=== PATIENT | male | born 1990 | race African-American/Black ===

== ENCOUNTER 2017-08-15 04:36 | Inpatient (IN) | payer SELFPAY ==
[~2017-08-15] VITALS: Ht 180.3 cm; Wt 72.6 kg
[2017-08-15] MEDS ORDERED: ONDANSETRON HCL 4MG/2ML VIAL IV STA (07:21)
[2017-08-15] MEDS ORDERED: FAMOTIDINE 20MG/2ML VIAL IV STA (07:21)
[2017-08-15] MEDS ORDERED: SODIUM CHLORIDE 0.9% 1,000 ML IV ONE (07:21)
[2017-08-15] MEDS ORDERED: KETOROLAC 30MG/ML VIAL IV ONE (07:30)
[2017-08-15 07:46] LABS: CHLORIDE 104 mEq/L (98-107)
[2017-08-15 07:51] LABS: ETHANOL BLOOD < 10 mg/dL
[2017-08-15 07:55] LABS: HEMATOCRIT. 27.7 % (42.0-52.0); HEMOGLOBIN. 8.4 g/dL (14.0-18.0); MEAN CORPUSCULAR HEMOGLOBIN 25.3 pg (28.0-32.0); PLATELET 266 x1000/uL (130-400); RED BLOOD CELL COUNT 3.34 mill/uL (4.7-6.1); RED CELL DISTRIBUTION WIDTH 21.7 % (11.6-14.6)
[2017-08-15 08:02] LABS: INR 1.1; PROTHROMBIN TIME 11.4 sec (9.4-11.6)
[2017-08-15] MEDS ORDERED: MORPHINE SULFATE 4 MG/ML CPJ (NOT FOR IM USE) IV ONE ×2 (08:30→10:00)
[2017-08-15 08:37] LABS: PLATELET ESTIMATE NORMAL
[2017-08-15] MEDS ORDERED: KCL 20MEQ/100ML PREMIX 100 ML IV ONE (08:45)
[2017-08-15] MEDS ORDERED: MAGNESIUM/ALUMINUM HYDROXIDE/SIMETHICONE 30ML UDC PO PRN (09:45)
[2017-08-15] MEDS ORDERED: DOCUSATE SODIUM 100MG CAPSULE PO PRN (09:45)
[2017-08-15] MEDS ORDERED: IPRATROPIUM/ALBUTEROL 0.5-3(2.5)MG/3ML NEB INH PRN (09:45)
[2017-08-15] MEDS ORDERED: DIPHENHYDRAMINE 50MG/ML VIAL IV PRN (09:45)
[2017-08-15] MEDS ORDERED: NA PHOS,M-B/NA PHOS,DI-BA ENEMA 118ML PR PRN (09:45)
[2017-08-15] MEDS ORDERED: ACETAMINOPHEN 325MG TABLET PO PRN (09:45)
[2017-08-15] MEDS ORDERED: GUAIFENESIN 200MG/10ML SUGAR FREE UDC PO PRN (09:45)
[2017-08-15] MEDS ORDERED: TRAMADOL 50MG TABLET PO PRN (09:45)
[2017-08-15 10:03] LABS: CLARITY URINE CLEAR (CLEAR); COLOR URINE DARK YELLOW (YELLOW); KETONES URINE 1+ (NEGATIVE); LEUKOCYTE ESTERASE URINE TRACE (NEGATIVE); NITRITE URINE NEGATIVE (NEGATIVE); OCCULT BLOOD URINE NEGATIVE (NEGATIVE); PH URINE 5.5 (4.5-8.0); PROTEIN URINE 2+ (NEGATIVE); SPECIFIC GRAVITY URINE 1.041 (1.005-1.030)
[2017-08-15 10:28] LABS: FOLIC ACID (FOLATE) SERUM >20 ng/mL ng/mL (>5.38)
[2017-08-15 11:33] VITALS: BP 152/96
[2017-08-15 11:41] LABS: VITAMIN B12 SERUM 422 pg/mL (211-911)
[2017-08-15] MEDS ORDERED: KCL 20MEQ/100ML PREMIX 100 ML IV SCH (12:00)
[2017-08-15 12:45] VITALS: BP 152/96
[2017-08-15] MEDS: METOPROLOL TARTRATE 25MG TABLET PO SCH ×2 (13:12→21:59)
[2017-08-15] MEDS: SODIUM CHLORIDE 0.9% 1,000 ML IV SCH (13:12)
[2017-08-15] MEDS: FAMOTIDINE 20MG TABLET PO SCH ×2 (13:14→21:58)
[2017-08-15] MEDS: ONDANSETRON HCL 4MG/2ML VIAL IV PRN ×2 (14:23→21:59)
[2017-08-15] MEDS: KETOROLAC 15MG/ML VIAL IV PRN ×2 (14:24→21:46)
[2017-08-15] MEDS: MORPHINE SULFATE 4 MG/ML CPJ (NOT FOR IM USE) IV PRN ×2 (15:57→20:17)
[2017-08-15 16:00] VITALS: BP 152/92
[2017-08-15] MEDS: LORAZEPAM 0.5MG TABLET PO PRN (17:15)
[2017-08-15 19:42] LABS: *AMPHETAMINES SCREEN URINE NEGATIVE (NEGATIVE); *BARBITURATES SCREEN URINE NEGATIVE (NEGATIVE); *BENZODIAZEPINES SCREEN URINE NEGATIVE (NEGATIVE); *COCAINE SCREEN URINE NEGATIVE (NEGATIVE); CANNABINOID URINE SCREEN PRESUMTIVE POSITIVE (NEGATIVE); METHADONE URINE SCREEN NEGATIVE (NEGATIVE); OPIATES URINE SCREEN PRESUMTIVE POSITIVE (NEGATIVE); PHENCYCLIDINE URINE SCREEN NEGATIVE (NEGATIVE)
[2017-08-15 20:35] VITALS: BP 156/108
[2017-08-15] MEDS ORDERED: ZOLPIDEM TARTRATE 5MG TABLET PO PRN (21:00)
[2017-08-15] MEDS ORDERED: FAMOTIDINE 20MG/2ML VIAL IV SCH (21:00)
[2017-08-16 00:11] VITALS: BP 148/106
[2017-08-16] MEDS: MORPHINE SULFATE 4 MG/ML CPJ (NOT FOR IM USE) IV PRN ×2 (00:39→06:03)
[2017-08-16] MEDS: CLONIDINE 0.1MG TABLET PO PRN ×2 (00:43→19:50)
[2017-08-16] MEDS: SODIUM CHLORIDE 0.9% 1,000 ML IV SCH ×4 (00:44→20:54)
[2017-08-16] MEDS: LORAZEPAM 0.5MG TABLET PO PRN ×3 (02:15→16:17)
[2017-08-16] MEDS: ONDANSETRON HCL 4MG/2ML VIAL IV PRN ×2 (02:15→16:16)
[2017-08-16] MEDS: KETOROLAC 15MG/ML VIAL IV PRN ×3 (03:58→21:02)
[2017-08-16 04:00] VITALS: BP 155/94
[2017-08-16 06:24] LABS: BASOPHILS % 0.2 % (0.0-2.0); HEMATOCRIT. 26.2 % (42.0-52.0); LYMPHOCYTES % 9.2 % (20.0-50.0); MEAN CORPUSCULAR HEMOGLOBIN 25.8 pg (28.0-32.0); MEAN CORPUSCULAR VOLUME 84.2 fL (80.0-94.0); NEUTROPHILS % 82.6 % (40.0-76.0); PLATELET 189 x1000/uL (130-400); RED BLOOD CELL COUNT 3.11 mill/uL (4.7-6.1)
[2017-08-16 07:24] LABS: CHLORIDE 104 mEq/L (98-107)
[2017-08-16 07:35] LABS: AMYLASE 147 IU/L (25-115)
[2017-08-16 08:00] VITALS: BP 136/98
[2017-08-16] MEDS: FAMOTIDINE 20MG TABLET PO SCH ×2 (08:05→21:01)
[2017-08-16] MEDS: METOPROLOL TARTRATE 25MG TABLET PO SCH ×2 (08:06→21:01)
[2017-08-16 12:00] VITALS: BP 147/99
[2017-08-16 16:00] VITALS: BP 141/91
[2017-08-16] MEDS: FERROUS SULFATE 300MG/5ML UDC PO SCH (17:50)
[2017-08-16] MEDS ORDERED: NICOTINE 14MG PATCH TD SCH (18:00)
[2017-08-16 20:00] VITALS: BP 141/102
[2017-08-16] MEDS: NICOTINE 14MG PATCH TD SCH (20:54)
[2017-08-17 00:41] VITALS: BP 125/76
[2017-08-17] MEDS: KETOROLAC 15MG/ML VIAL IV PRN (03:31)
[2017-08-17] MEDS: SODIUM CHLORIDE 0.9% 1,000 ML IV SCH (03:31)
[2017-08-17 04:00] VITALS: BP 126/78
[2017-08-17 08:00] VITALS: BP 140/89
[2017-08-17] MEDS: FAMOTIDINE 20MG TABLET PO SCH (08:43)
[2017-08-17] MEDS: METOPROLOL TARTRATE 25MG TABLET PO SCH (08:43)
[2017-08-17] MEDS: FERROUS SULFATE 300MG/5ML UDC PO SCH (08:45)
[2017-08-17] MEDS: NICOTINE 14MG PATCH TD SCH (08:45)
[2017-08-17 12:00] VITALS: BP 132/78
[2017-08-17 12:07] VITALS: BP 140/89
== END 2017-08-17 13:25 | disposition home or self-care (01) | DRG 282 ==
LOC: ER 04:36 → 6EST 09:00 → ENRESERV 09:49 → UNDOADMIN 11:21 → 6EST 11:21
PROVIDERS: ADMIT Internal Medicine; ATTEND Internal Medicine
DX: K85.20 Alcohol induced acute pancreatitis without necrosis or infection (principal); K80.50 Calculus of bile duct without cholangitis or cholecystitis without obstruction; E87.6 Hypokalemia; D64.9 Anemia, unspecified; D50.9 Iron deficiency anemia, unspecified; F10.10 Alcohol abuse, uncomplicated; F17.210 Nicotine dependence, cigarettes, uncomplicated; K29.70 Gastritis, unspecified, without bleeding; Y90.9 Presence of alcohol in blood, level not specified
CPT/HCPCS: 36415; 71045; 74181; 76700; 80053; 80061; 80305; 81003; 82150; 82607; 82746; 83540; 83550; 83690; 85025; 85610; 93005; 96361; 96374; 96375; 96376; 99285; C1893; G0482; J1885; J2270; J2405; J3480; J3490; J7030

== ENCOUNTER 2018-02-17 14:32 | Inpatient (IN) | payer MEDICAID ==
[~2018-02-17] VITALS: Ht 177.8 cm; Wt 67.6 kg
[2018-02-17] MEDS ORDERED: FAMOTIDINE 20MG/2ML VIAL IV STA (15:54)
[2018-02-17] MEDS ORDERED: ONDANSETRON HCL 4MG/2ML INJ IV STA (15:54)
[2018-02-17] MEDS ORDERED: SODIUM CHLORIDE 0.9% 1,000 ML IV ONE ×2 (15:54→17:55)
[2018-02-17] MEDS ORDERED: ACETAMINOPHEN WITH CODEINE 300/30MG TABLET PO STA (15:54)
[2018-02-17 16:28] LABS: CLARITY URINE CLEAR (CLEAR); COLOR URINE DARK YELLOW (YELLOW); KETONES URINE 1+ (NEGATIVE); LEUKOCYTE ESTERASE URINE NEGATIVE (NEGATIVE); NITRITE URINE NEGATIVE (NEGATIVE); OCCULT BLOOD URINE NEGATIVE (NEGATIVE); PH URINE 5.5 (4.5-8.0); PROTEIN URINE TRACE (NEGATIVE); SPECIFIC GRAVITY URINE 1.028 (1.005-1.030)
[2018-02-17 16:39] LABS: HEMATOCRIT. 24.1 % (42.0-52.0); HEMOGLOBIN. 7.4 g/dL (14.0-18.0); MEAN CORPUSCULAR HEMOGLOBIN 22.9 pg (28.0-32.0); MEAN CORPUSCULAR VOLUME 74.6 fL (80.0-94.0); MEAN PLATELET VOLUME 8.2 fl (7.4-10.4); PLATELET 254 x1000/uL (130-400); RED BLOOD CELL COUNT 3.23 mill/uL (4.7-6.1); RED CELL DISTRIBUTION WIDTH 22.2 % (11.6-14.6)
[2018-02-17 16:39] LABS: METHADONE URINE SCREEN NEGATIVE (NEGATIVE)
[2018-02-17 16:40] LABS: *AMPHETAMINES SCREEN URINE NEGATIVE (NEGATIVE); *BARBITURATES SCREEN URINE NEGATIVE (NEGATIVE); *BENZODIAZEPINES SCREEN URINE NEGATIVE (NEGATIVE); *COCAINE SCREEN URINE NEGATIVE (NEGATIVE); CANNABINOID URINE SCREEN PRESUMTIVE POSITIVE (NEGATIVE); OPIATES URINE SCREEN NEGATIVE (NEGATIVE); PHENCYCLIDINE URINE SCREEN NEGATIVE (NEGATIVE)
[2018-02-17 16:46] LABS: CHLORIDE 101 mEq/L (98-107)
[2018-02-17] MEDS ORDERED: MAGNESIUM/ALUMINUM HYDROXIDE/SIMETHICONE 30ML UDC PO PRN (18:30)
[2018-02-17] MEDS ORDERED: ACETAMINOPHEN 325MG TABLET PO PRN (18:30)
[2018-02-17] MEDS ORDERED: LEVOFLOXACIN 500MG PREMIX 100 ML IV SCH (18:30)
[2018-02-17] MEDS ORDERED: IPRATROPIUM/ALBUTEROL 0.5-3(2.5)MG/3ML NEB INH PRN (18:30)
[2018-02-17] MEDS ORDERED: DOCUSATE SODIUM 100MG CAPSULE PO PRN (18:30)
[2018-02-17] MEDS ORDERED: LORAZEPAM 2MG/ML CPJ IV PRN (18:30)
[2018-02-17] MEDS ORDERED: ONDANSETRON HCL 4MG/2ML INJ IV PRN (18:30)
[2018-02-17] MEDS ORDERED: DIPHENHYDRAMINE 50MG/ML VIAL IV PRN (18:30)
[2018-02-17] MEDS ORDERED: GUAIFENESIN 200MG/10ML SUGAR FREE UDC PO PRN (18:30)
[2018-02-17] MEDS ORDERED: CLONIDINE 0.1MG TABLET PO PRN (18:30)
[2018-02-17 19:20] LABS: PLATELET ESTIMATE NORMAL
[2018-02-17 20:00] VITALS: BP 142/90
[2018-02-17] MEDS ORDERED: HYDROCODONE/ACETAMINOPHEN 10/325MG TABLET PO PRN (20:00)
[2018-02-17] MEDS ORDERED: MORPHINE SULFATE 4 MG/ML CPJ (NOT FOR IM USE) IV PRN (20:00)
[2018-02-17 21:00] VITALS: BP 142/90
[2018-02-17] MEDS ORDERED: NA PHOS,M-B/NA PHOS,DI-BA ENEMA 118ML PR PRN (21:00)
[2018-02-17 21:32] LABS: CHLORIDE 105 mEq/L (98-107)
[2018-02-17] MEDS ORDERED: METRONIDAZOLE 500 MG PREMIX 100 ML IV SCH (22:00)
[2018-02-18] VITALS (9 sets, daily range): BP systolic 114–139; BP diastolic 77–90
[2018-02-18] MEDS ORDERED: DEXT 5%/0.45% NACL KCL 10MEQ/L 1,000 ML IV SCH
[2018-02-18] MEDS ORDERED: LEVOFLOXACIN 500MG PREMIX 100 ML IV SCH (01:00)
[2018-02-18] MEDS: METRONIDAZOLE 500 MG PREMIX 100 ML IV SCH ×2 (03:55→11:38)
[2018-02-18 06:58] LABS: BASOPHILS % 1.3 % (0.0-2.0); HEMATOCRIT. 22.6 % (42.0-52.0); LYMPHOCYTES % 19.5 % (20.0-50.0); MEAN CORPUSCULAR HEMOGLOBIN 23.2 pg (28.0-32.0); MEAN CORPUSCULAR VOLUME 75.3 fL (80.0-94.0); MEAN PLATELET VOLUME 8.2 fl (7.4-10.4); MONOCYTES % 12.2 % (2.0-8.0); PLATELET 228 x1000/uL (130-400); RED BLOOD CELL COUNT 3.01 mill/uL (4.7-6.1); RED CELL DISTRIBUTION WIDTH 22.2 % (11.6-14.6)
[2018-02-18 07:22] LABS: CHLORIDE 107 mEq/L (98-107)
[2018-02-18 07:36] LABS: HDL CHOLESTEROL 51 mg/dL (40-59); LDL CHOLESTEROL 100 mg/dL (5-100); T4 FREE 0.68 ng/dL (0.76-1.46)
[2018-02-18] MEDS ORDERED: ENOXAPARIN 40MG/0.4ML SYR SUBCUT SCH (09:00)
[2018-02-18 13:44] LABS: PLATELET ESTIMATE NORMAL
[2018-02-18 16:25] LABS: HEMATOCRIT 25.1 % (42.0-52.0); HEMOGLOBIN 7.8 g/dL (14.0-18.0)
== END 2018-02-18 16:58 | disposition left against medical advice (07) | DRG 282 ==
LOC: ER 16:47 → 6EST 18:18 → EDBEDREQTM 18:22 → EDBEDREQ 18:22 → ENRESERV 19:09
PROVIDERS: ADMIT Internal Medicine; ATTEND Internal Medicine
PROC: 30233N1 Transfusion of Nonautologous Red Blood Cells into Peripheral Vein, Percutaneous Approach (ICD-10-PCS; principal; 2018-02-18)
DX: K85.90 Acute pancreatitis without necrosis or infection, unspecified (principal); E46 Unspecified protein-calorie malnutrition; R18.8 Other ascites; R65.10 Systemic inflammatory response syndrome (SIRS) of non-infectious origin without acute organ dysfunction; K83.8 Other specified diseases of biliary tract; K76.0 Fatty (change of) liver, not elsewhere classified; Z53.21 Procedure and treatment not carried out due to patient leaving prior to being seen by health care provider; D64.9 Anemia, unspecified; E03.9 Hypothyroidism, unspecified; E86.0 Dehydration; I10 Essential (primary) hypertension; M54.30 Sciatica, unspecified side; Z68.21 Body mass index [BMI] 21.0-21.9, adult
CPT/HCPCS: 36415; 36430; 71045; 76705; 80048; 80053; 80061; 80305; 81003; 83690; 84439; 84443; 85014; 85018; 85025; 85610; 86850; 86900; 86920; 93005; 96374; 96375; 99285; J1650; J1956; J2405; J3490; J7030; J7040; P9016

== ENCOUNTER 2018-06-06 14:13 | Emergency (ER) | payer MEDICAID ==
[~2018-06-06] VITALS: Ht 177.8 cm; Wt 68.1 kg
[2018-06-06 15:20] VITALS: BP 136/94
== END 2018-06-06 21:00 | disposition left against medical advice (07) ==
LOC: ER 14:13
DX: Z53.21 Procedure and treatment not carried out due to patient leaving prior to being seen by health care provider (principal)

== ENCOUNTER 2018-07-25 04:06 | Emergency (ER) | payer MEDICAID ==
[~2018-07-25] VITALS: Ht 177.8 cm; Wt 69.0 kg
[2018-07-25 05:53] LABS: HEMATOCRIT. 30.4 % (42.0-52.0); HEMOGLOBIN. 9.3 g/dL (14.0-18.0); MEAN CORPUSCULAR HEMOGLOBIN 23.2 pg (28.0-32.0); MEAN CORPUSCULAR VOLUME 75.6 fL (80.0-94.0); MEAN PLATELET VOLUME 8.1 fl (7.4-10.4); PLATELET 259 x1000/uL (130-400); RED BLOOD CELL COUNT 4.02 mill/uL (4.7-6.1); RED CELL DISTRIBUTION WIDTH 22.1 % (11.6-14.6)
[2018-07-25 05:54] LABS: CHLORIDE 102 mEq/L (98-107)
[2018-07-25 05:55] LABS: CLARITY URINE CLEAR (CLEAR); COLOR URINE DARK YELLOW (YELLOW); KETONES URINE 1+ (NEGATIVE); LEUKOCYTE ESTERASE URINE NEGATIVE (NEGATIVE); NITRITE URINE NEGATIVE (NEGATIVE); OCCULT BLOOD URINE 1+ (NEGATIVE); PROTEIN URINE TRACE (NEGATIVE); SPECIFIC GRAVITY URINE 1.027 (1.005-1.030); UROBILINOGEN URINE 0.2 E.U./dL (0.2-1.0)
[2018-07-25] MEDS ORDERED: SODIUM CHLORIDE 0.9% 1,000 ML IV ONE (06:00)
[2018-07-25] MEDS ORDERED: ONDANSETRON HCL 4MG/2ML INJ IV ONE ×2 (06:00→08:45)
[2018-07-25 06:40] LABS: PLATELET ESTIMATE NORMAL
[2018-07-25] MEDS ORDERED: FAMOTIDINE 20MG/2ML VIAL IV ONE (06:45)
[2018-07-25] MEDS ORDERED: MORPHINE SULFATE 4 MG/ML CPJ (NOT FOR IM USE) IV ONE (06:45)
[2018-07-25 07:46] LABS: *AMPHETAMINES SCREEN URINE NEGATIVE (NEGATIVE); *BARBITURATES SCREEN URINE NEGATIVE (NEGATIVE); *BENZODIAZEPINES SCREEN URINE NEGATIVE (NEGATIVE)
[2018-07-25 07:47] LABS: *COCAINE SCREEN URINE NEGATIVE (NEGATIVE); CANNABINOID URINE SCREEN PRESUMTIVE POSITIVE (NEGATIVE); METHADONE URINE SCREEN NEGATIVE (NEGATIVE); OPIATES URINE SCREEN NEGATIVE (NEGATIVE); PHENCYCLIDINE URINE SCREEN NEGATIVE (NEGATIVE)
[2018-07-25] MEDS ORDERED: MORPHINE SULFATE 10 MG/ML CPJ IV ONE (08:45)
[2018-07-25 10:16] VITALS: BP 132/93
== END 2018-07-25 10:30 | disposition home or self-care (01) ==
LOC: ER 06:20
DX: K85.90 Acute pancreatitis without necrosis or infection, unspecified (principal); F12.10 Cannabis abuse, uncomplicated; R11.10 Vomiting, unspecified
CPT/HCPCS: 36415; 74176; 76705; 80053; 80305; 80320; 81003; 83690; 85025; 96361; 96374; 96375; 96376; 99284; J2270; J2405; J3490; J7030; Z7610; G0480

== ENCOUNTER 2019-04-23 23:14 | Inpatient (IN) | payer MEDICAID ==
[~2019-04-23] VITALS: Ht 177.8 cm; Wt 52.6 kg
[2019-04-24] MEDS ORDERED: ONDANSETRON HCL 4MG/2ML INJ IV STA (00:15)
[2019-04-24] MEDS ORDERED: SODIUM CHLORIDE 0.9% 1,000 ML IV ONE ×2 (00:15)
[2019-04-24] MEDS ORDERED: MORPHINE SULFATE 4 MG/ML CPJ (NOT FOR IM USE) IV STA ×2 (00:15→02:02)
[2019-04-24 00:59] LABS: CHLORIDE 101 mEq/L (98-107); HEMATOCRIT. 25.7 % (42.0-52.0); MEAN CORPUSCULAR HEMOGLOBIN 24.3 pg (28.0-32.0); MEAN CORPUSCULAR VOLUME 78.4 fL (80.0-94.0); PLATELET 505 x1000/uL (130-400); RED BLOOD CELL COUNT 3.28 mill/uL (4.7-6.1)
[2019-04-24 01:01] LABS: INR 1.2
[2019-04-24 01:03] LABS: ETHANOL BLOOD < 10 mg/dL
[2019-04-24 01:14] LABS: BETA HYDROXYBUTYRATE 1.1 mMol/L (0.0-0.3)
[2019-04-24 01:21] LABS: PLATELET ESTIMATE INCREASED
[2019-04-24 01:51] LABS: BG BASE EXCESS 0.5 mmol/L (-2.0-2.0); BG CARBOXYHEMOGLOBIN 3.7 % (0.5-1.5); BG FRACTION INSPIRED OXYGEN 21; BG HCO3 ACT 25.2 mmol/L (22.0-26.0); BG METHEMOGLOBIN 0.1 % (0.0-1.5); BG OXYGEN SATURATION 88.6 % (92.0-98.5); BG OXYHEMOGLOBIN 85.2 % (94.0-97.0); BG PCO2 40.9 mmHg (35.0-45.0); BG PH 7.408 (7.350-7.450); BG PO2 55.9 mmHg (75.0-100.0); BG SAMPLE SITE RIGHT RADIAL; BG TOTAL HEMOGLOBIN 8.2 g/dL (12.0-18.0); BG VENT MODE ROOM AIR
[2019-04-24] MEDS ORDERED: MIDAZOLAM HCL 2 MG/2 ML VIAL IV ONE (02:15)
[2019-04-24] MEDS ORDERED: ONDANSETRON HCL 4MG/2ML INJ IV PRN (03:00)
[2019-04-24] MEDS ORDERED: DEXTROSE 50% WATER 50ML SYRINGE IV PRN (03:00)
[2019-04-24] MEDS ORDERED: ACETAMINOPHEN 650MG SUPP PR PRN (03:00)
[2019-04-24 03:46] LABS: ETHANOL BLOOD < 10 mg/dL
[2019-04-24] MEDS ORDERED: IOHEXOL-300 100 ML BOTTLE ONE (04:16)
[2019-04-24] MEDS: MORPHINE SULFATE 2 MG/ML CPJ (NOT FOR IM USE) IV PRN ×5 (06:06→23:02)
[2019-04-24] MEDS: SODIUM CHL 0.9% + KCL 20MEQ/L 1,000 ML IV SCH ×3 (06:30→22:46)
[2019-04-24] MEDS: BLOOD SUGAR DIAGNOSTIC STRIP TEST SCH ×4 (08:00→21:00)
[2019-04-24 08:30] VITALS: BP 133/95
[2019-04-24] MEDS: INSULIN LISPRO 100 UNITS/ML SUBCUT SCH ×4 (09:50→20:40)
[2019-04-24] MEDS: FAMOTIDINE 20MG/2ML VIAL IV SCH ×2 (09:57→22:46)
[2019-04-24] MEDS: HEPARIN 5000 UNITS/ML VIAL SUBCUT SCH ×2 (09:57→20:39)
[2019-04-24 10:40] VITALS: BP 133/95
[2019-04-24 12:00] VITALS: BP 129/95
[2019-04-24 16:00] VITALS: BP 118/87
[2019-04-24] MEDS ORDERED: POTASSIUM CHLORIDE 20MEQ TABLET SR PO NR (16:00)
[2019-04-24] MEDS: DOCUSATE SODIUM 250MG CAPSULE PO SCH (16:30)
[2019-04-24] MEDS: FERROUS SULFATE 325MG TABLET PO SCH (17:20)
[2019-04-24] MEDS ORDERED: MAGNESIUM 2 G PREMIX 50 ML IV NR (18:00)
[2019-04-24 20:00] VITALS: BP 128/96
[2019-04-24 21:19] LABS: TOTAL IRON BINDING CAPACITY 271 ug/dL (250-450)
[2019-04-25] VITALS (7 sets, daily range): BP systolic 116–135; BP diastolic 83–97
[2019-04-25] MEDS: MORPHINE SULFATE 2 MG/ML CPJ (NOT FOR IM USE) IV PRN ×5 (00:40→12:44)
[2019-04-25] MEDS ORDERED: MORPHINE SULFATE 2 MG/ML CPJ (NOT FOR IM USE) IV NR (01:00)
[2019-04-25] MEDS ORDERED: ACETAMINOPHEN 325MG TABLET PO PRN (01:15)
[2019-04-25] MEDS: SODIUM CHL 0.9% + KCL 20MEQ/L 1,000 ML IV SCH ×2 (06:30→20:54)
[2019-04-25] MEDS: BLOOD SUGAR DIAGNOSTIC STRIP TEST SCH ×4 (06:33→21:10)
[2019-04-25 07:11] LABS: HEMATOCRIT. 25.9 % (42.0-52.0); MEAN CORPUSCULAR HEMOGLOBIN 24.6 pg (28.0-32.0); MEAN CORPUSCULAR VOLUME 79.9 fL (80.0-94.0); MEAN PLATELET VOLUME 8.4 fl (7.4-10.4); PLATELET 427 x1000/uL (130-400); RED BLOOD CELL COUNT 3.24 mill/uL (4.7-6.1); RED CELL DISTRIBUTION WIDTH 20.7 % (11.6-14.6)
[2019-04-25 07:34] LABS: CLARITY URINE CLEAR (CLEAR); COLOR URINE YELLOW (YELLOW); KETONES URINE 3+ (NEGATIVE); LEUKOCYTE ESTERASE URINE NEGATIVE (NEGATIVE); NITRITE URINE NEGATIVE (NEGATIVE); OCCULT BLOOD URINE 1+ (NEGATIVE); PH URINE 5.5 (4.5-8.0); PROTEIN URINE TRACE (NEGATIVE); SPECIFIC GRAVITY URINE 1.028 (1.005-1.030); UROBILINOGEN URINE 0.2 E.U./dL (0.2-1.0)
[2019-04-25 08:01] LABS: *AMPHETAMINES SCREEN URINE NEGATIVE (NEGATIVE); *BARBITURATES SCREEN URINE NEGATIVE (NEGATIVE); *COCAINE SCREEN URINE NEGATIVE (NEGATIVE)
[2019-04-25 08:02] LABS: *BENZODIAZEPINES SCREEN URINE PRESUMTIVE POSITIVE (NEGATIVE); CANNABINOID URINE SCREEN PRESUMTIVE POSITIVE (NEGATIVE); METHADONE URINE SCREEN NEGATIVE (NEGATIVE); OPIATES URINE SCREEN PRESUMTIVE POSITIVE (NEGATIVE); PHENCYCLIDINE URINE SCREEN NEGATIVE (NEGATIVE)
[2019-04-25 08:04] LABS: CHLORIDE 102 mEq/L (98-107)
[2019-04-25] MEDS: DOCUSATE SODIUM 250MG CAPSULE PO SCH (08:17)
[2019-04-25] MEDS: HEPARIN 5000 UNITS/ML VIAL SUBCUT SCH ×2 (08:22→20:54)
[2019-04-25] MEDS: FAMOTIDINE 20MG/2ML VIAL IV SCH ×2 (08:22→20:54)
[2019-04-25] MEDS: FERROUS SULFATE 325MG TABLET PO SCH ×3 (08:22→19:05)
[2019-04-25] MEDS: INSULIN LISPRO 100 UNITS/ML SUBCUT SCH ×4 (08:24→21:17)
[2019-04-25 10:02] LABS: PLATELET ESTIMATE INCREASED
[2019-04-26] VITALS: BP 142/98
[2019-04-26 01:03] VITALS: BP 142/101
[2019-04-26] MEDS: MORPHINE SULFATE 2 MG/ML CPJ (NOT FOR IM USE) IV PRN ×4 (01:20→11:04)
[2019-04-26 04:00] VITALS: BP 130/90
[2019-04-26] MEDS: BLOOD SUGAR DIAGNOSTIC STRIP TEST SCH (06:20)
[2019-04-26 06:25] LABS: HEMATOCRIT. 26.4 % (42.0-52.0); HEMOGLOBIN. 8.2 g/dL (14.0-18.0); MEAN CORPUSCULAR HEMOGLOBIN 24.4 pg (28.0-32.0); MEAN CORPUSCULAR VOLUME 78.7 fL (80.0-94.0); MEAN PLATELET VOLUME 8.4 fl (7.4-10.4); PLATELET 451 x1000/uL (130-400); RED BLOOD CELL COUNT 3.36 mill/uL (4.7-6.1); RED CELL DISTRIBUTION WIDTH 20.6 % (11.6-14.6)
[2019-04-26 06:59] LABS: CHLORIDE 99 mEq/L (98-107)
[2019-04-26 08:00] VITALS: BP 143/98
[2019-04-26] MEDS: DOCUSATE SODIUM 250MG CAPSULE PO SCH (08:11)
[2019-04-26] MEDS: FERROUS SULFATE 325MG TABLET PO SCH (08:12)
[2019-04-26] MEDS: FAMOTIDINE 20MG/2ML VIAL IV SCH (08:13)
[2019-04-26] MEDS: HEPARIN 5000 UNITS/ML VIAL SUBCUT SCH (08:13)
[2019-04-26] MEDS: INSULIN LISPRO 100 UNITS/ML SUBCUT SCH (08:55)
[2019-04-26 11:04] VITALS: BP 143/98
[2019-04-26] MEDS: SODIUM CHL 0.9% + KCL 20MEQ/L 1,000 ML IV SCH (11:04)
[2019-04-26 11:44] LABS: PLATELET ESTIMATE INCREASED
== END 2019-04-26 12:48 | disposition left against medical advice (07) | DRG 282 ==
LOC: ER 23:14 → 7WST 04-24 03:30 → EDBEDREQTM 04-24 03:39 → EDBEDREQ 04-24 03:39 → ENRESERV 04-24 07:10 → 7WST 04-24 09:07 → 6EST 04-25 12:12
PROVIDERS: ADMIT Family Medicine Adult Medicine; ATTEND Family Medicine Adult Medicine
DX: K85.20 Alcohol induced acute pancreatitis without necrosis or infection (principal); E83.42 Hypomagnesemia; D50.9 Iron deficiency anemia, unspecified; E11.9 Type 2 diabetes mellitus without complications; E87.1 Hypo-osmolality and hyponatremia; E87.6 Hypokalemia; F12.90 Cannabis use, unspecified, uncomplicated; G89.29 Other chronic pain; K86.0 Alcohol-induced chronic pancreatitis; K86.3 Pseudocyst of pancreas; Z53.29 Procedure and treatment not carried out because of patient's decision for other reasons; F10.10 Alcohol abuse, uncomplicated
CPT/HCPCS: 36415; 36600; 71045; 74177; 80048; 80305; 80320; 81003; 82010; 82375; 82728; 82805; 82962; 83036; 83540; 83550; 83605; 83735; 84478; 96361; 96374; 96375; 99285; C1893; J1644; J1815; J2250; J2270; J2405; J3475; J3480; J3490; J7030; Q9967; G0480

== ENCOUNTER 2019-05-06 10:39 | Inpatient (IN) | payer MEDICAID ==
[~2019-05-06] VITALS: Ht 177.8 cm; Wt 68.0 kg
[2019-05-06] MEDS ORDERED: MORPHINE SULFATE 4 MG/ML CPJ (NOT FOR IM USE) IV STA (11:05)
[2019-05-06] MEDS ORDERED: ONDANSETRON HCL 4MG/2ML INJ IV STA (11:05)
[2019-05-06] MEDS ORDERED: SODIUM CHLORIDE 0.9% 1,000 ML IV ONE (11:05)
[2019-05-06] MEDS ORDERED: INSULIN REGULAR (HUMULIN R) 300UNITS/3ML SUBCUT ONE (11:15)
[2019-05-06 11:30] LABS: HEMATOCRIT. 24.7 % (42.0-52.0); HEMOGLOBIN. 7.5 g/dL (14.0-18.0); MEAN CORPUSCULAR HEMOGLOBIN 23.9 pg (28.0-32.0); MEAN CORPUSCULAR VOLUME 79.1 fL (80.0-94.0); MEAN PLATELET VOLUME 7.3 fl (7.4-10.4); PLATELET 581 x1000/uL (130-400); RED BLOOD CELL COUNT 3.13 mill/uL (4.7-6.1); RED CELL DISTRIBUTION WIDTH 24.4 % (11.6-14.6)
[2019-05-06 11:39] LABS: CHLORIDE 101 mEq/L (98-107)
[2019-05-06 11:43] LABS: ETHANOL BLOOD < 10 mg/dL
[2019-05-06 11:47] LABS: BETA HYDROXYBUTYRATE 0.4 mMol/L (0.0-0.3)
[2019-05-06 12:30] LABS: CLARITY URINE CLEAR (CLEAR); COLOR URINE DARK YELLOW (YELLOW); KETONES URINE 1+ (NEGATIVE); LEUKOCYTE ESTERASE URINE NEGATIVE (NEGATIVE); NITRITE URINE NEGATIVE (NEGATIVE); OCCULT BLOOD URINE TRACE (NEGATIVE); PH URINE 5.5 (4.5-8.0); PROTEIN URINE 1+ (NEGATIVE); SPECIFIC GRAVITY URINE 1.046 (1.005-1.030)
[2019-05-06 12:59] LABS: *AMPHETAMINES SCREEN URINE NEGATIVE (NEGATIVE); *BARBITURATES SCREEN URINE NEGATIVE (NEGATIVE); CANNABINOID URINE SCREEN PRESUMTIVE POSITIVE (NEGATIVE)
[2019-05-06 13:06] LABS: METHADONE URINE SCREEN NEGATIVE (NEGATIVE); OPIATES URINE SCREEN PRESUMTIVE POSITIVE (NEGATIVE)
[2019-05-06 13:11] LABS: *BENZODIAZEPINES SCREEN URINE NEGATIVE (NEGATIVE)
[2019-05-06 13:12] LABS: *COCAINE SCREEN URINE NEGATIVE (NEGATIVE)
[2019-05-06 13:14] LABS: PHENCYCLIDINE URINE SCREEN NEGATIVE (NEGATIVE)
[2019-05-06] MEDS ORDERED: MORPHINE SULFATE 4 MG/ML CPJ (NOT FOR IM USE) IV ONE (14:00)
[2019-05-06 14:20] LABS: PLATELET ESTIMATE INCREASED
[2019-05-06] MEDS ORDERED: DIPHENHYDRAMINE 50MG/ML VIAL IV PRN (19:15)
[2019-05-06] MEDS ORDERED: GUAIFENESIN 200MG/10ML SUGAR FREE UDC PO PRN (19:15)
[2019-05-06] MEDS ORDERED: ACETAMINOPHEN 650MG SUPP PR PRN (19:15)
[2019-05-06] MEDS ORDERED: IPRATROPIUM/ALBUTEROL 0.5-3(2.5)MG/3ML NEB HHN PRN (19:15)
[2019-05-06] MEDS ORDERED: DOCUSATE SODIUM 100MG CAPSULE PO PRN (19:15)
[2019-05-06] MEDS ORDERED: HYDROCODONE/ACETAMINOPHEN 5/325MG TABLET PO PRN (19:15)
[2019-05-06] MEDS ORDERED: NA PHOS,M-B/NA PHOS,DI-BA ENEMA 118ML PR PRN (19:15)
[2019-05-06] MEDS ORDERED: HYDROCODONE/ACETAMINOPHEN 10/325MG TABLET PO PRN (19:15)
[2019-05-06] MEDS ORDERED: MORPHINE SULFATE 2 MG/ML CPJ (NOT FOR IM USE) IV PRN (19:15)
[2019-05-06] MEDS ORDERED: MAGNESIUM/ALUMINUM HYDROXIDE/SIMETHICONE 30ML UDC PO PRN (19:15)
[2019-05-06] MEDS ORDERED: CLONIDINE 0.1MG TABLET PO PRN (19:15)
[2019-05-06] MEDS ORDERED: ACETAMINOPHEN 650MG/20.3ML UDC GT PRN (19:15)
[2019-05-06] MEDS ORDERED: ONDANSETRON HCL 4MG/2ML INJ IV PRN (19:15)
[2019-05-06] MEDS ORDERED: ACETAMINOPHEN 325MG TABLET PO PRN (19:15)
[2019-05-06 20:00] VITALS: BP_SYST 128; BP_SYST 130; BP_DIAS 78; BP_DIAS 97
[2019-05-06 20:30] VITALS: BP 130/97
[2019-05-06] MEDS ORDERED: ENOXAPARIN 40MG/0.4ML SYR SUBCUT SCH (21:00)
[2019-05-06] MEDS ORDERED: FAMOTIDINE 20MG/2ML VIAL IV SCH (21:00)
[2019-05-06] MEDS ORDERED: DEXTROSE 50% WATER 50ML SYRINGE IV PRN (21:30)
[2019-05-06] MEDS: DEXT 5%/0.45% NACL 1000ML 1,000 ML IV SCH (21:56)
[2019-05-06] MEDS: SODIUM CHLORIDE 0.9% INJ 3ML FLUSH IVF SCH (21:59)
[2019-05-07] VITALS: BP_SYST 139; BP_SYST 167; BP_DIAS 70; BP_DIAS 96
[2019-05-07 04:00] VITALS: BP 124/94
[2019-05-07] MEDS: DEXT 5%/0.45% NACL 1000ML 1,000 ML IV SCH (05:49)
[2019-05-07] MEDS: SODIUM CHLORIDE 0.9% INJ 3ML FLUSH IVF SCH (05:57)
[2019-05-07 07:00] LABS: CHLORIDE 104 mEq/L (98-107)
[2019-05-07 07:06] LABS: LDL CHOLESTEROL 95 mg/dL (5-100)
[2019-05-07 07:07] LABS: HDL CHOLESTEROL 37 mg/dL (40-59)
[2019-05-07 07:16] LABS: HEMATOCRIT. 23.1 % (42.0-52.0); HEMOGLOBIN. 7.1 g/dL (14.0-18.0); MEAN CORPUSCULAR HEMOGLOBIN 24.2 pg (28.0-32.0); MEAN CORPUSCULAR VOLUME 79.2 fL (80.0-94.0); MEAN PLATELET VOLUME 7.7 fl (7.4-10.4); PLATELET 535 x1000/uL (130-400); RED BLOOD CELL COUNT 2.92 mill/uL (4.7-6.1); RED CELL DISTRIBUTION WIDTH 23.8 % (11.6-14.6)
[2019-05-07] MEDS ORDERED: BLOOD SUGAR DIAGNOSTIC STRIP TEST SCH (07:20)
[2019-05-07] MEDS ORDERED: INSULIN LISPRO 100 UNITS/ML SUBCUT SCH (07:50)
[2019-05-08 07:42] LABS: PLATELET ESTIMATE INCREASED
== END 2019-05-07 07:15 | disposition left against medical advice (07) | DRG 282 ==
LOC: ER 10:39 → 6EST 15:13 → ENRESERV 18:38
PROVIDERS: ADMIT Family Medicine; ATTEND Family Medicine
DX: K86.3 Pseudocyst of pancreas (principal); E44.0 Moderate protein-calorie malnutrition; K86.1 Other chronic pancreatitis; E11.9 Type 2 diabetes mellitus without complications; F10.10 Alcohol abuse, uncomplicated; K80.20 Calculus of gallbladder without cholecystitis without obstruction; E87.1 Hypo-osmolality and hyponatremia; Z68.21 Body mass index [BMI] 21.0-21.9, adult; Z79.4 Long term (current) use of insulin
CPT/HCPCS: 36415; 71045; 74176; 80053; 80061; 80305; 80320; 81003; 82010; 82962; 85025; 93005; 99285; J1650; J1815; J2270; J2405; J3490; J7030; G0480

== ENCOUNTER 2019-05-08 07:37 | Emergency (ER) | payer MEDICAID ==
[~2019-05-08] VITALS: Ht 177.8 cm; Wt 158.0 kg
[2019-05-08 11:39] VITALS: BP 127/96
== END 2019-05-08 20:56 | disposition left against medical advice (07) ==
LOC: ER 07:37
DX: R10.9 Unspecified abdominal pain (principal); Z53.21 Procedure and treatment not carried out due to patient leaving prior to being seen by health care provider

== ENCOUNTER 2019-10-11 23:09 | Inpatient (IN) | payer MEDICAID ==
[~2019-10-11] VITALS: Ht 172.7 cm; Wt 74.8 kg
[2019-10-11] MEDS ORDERED: MORPHINE SULFATE 4 MG/ML CPJ (NOT FOR IM USE) IV STA (23:48)
[2019-10-11] MEDS ORDERED: ONDANSETRON HCL 4MG/2ML INJ IV STA (23:48)
[2019-10-11] MEDS ORDERED: SODIUM CHLORIDE 0.9% 1,000 ML IV ONE (23:48)
[2019-10-12 00:36] LABS: BASOPHILS % 0.8 % (0.0-2.0); EOSINOPHILS % 0.3 % (0.0-5.0); HEMATOCRIT. 39.8 % (42.0-52.0); HEMOGLOBIN. 13.5 g/dL (14.0-18.0); LYMPHOCYTES % 13.9 % (20.0-50.0); MEAN CORPUSCULAR HEMOGLOBIN 29.7 pg (28.0-32.0); MEAN CORPUSCULAR VOLUME 87.6 fL (80.0-94.0); MEAN PLATELET VOLUME 8.7 fl (7.4-10.4); MONOCYTES % 8.1 % (2.0-8.0); NEUTROPHILS % 76.9 % (40.0-76.0); PLATELET 244 x1000/uL (130-400); RED BLOOD CELL COUNT 4.55 mill/uL (4.7-6.1); RED CELL DISTRIBUTION WIDTH 21.1 % (11.6-14.6)
[2019-10-12 00:37] LABS: CLARITY URINE CLEAR (CLEAR); COLOR URINE YELLOW (YELLOW); KETONES URINE 1+ (NEGATIVE); LEUKOCYTE ESTERASE URINE NEGATIVE (NEGATIVE); NITRITE URINE NEGATIVE (NEGATIVE); OCCULT BLOOD URINE 1+ (NEGATIVE); PROTEIN URINE TRACE (NEGATIVE); SPECIFIC GRAVITY URINE 1.023 (1.005-1.030)
[2019-10-12 00:38] LABS: CHLORIDE 102 mEq/L (98-107)
[2019-10-12 00:40] LABS: PROTHROMBIN TIME 10.6 sec (9.6-11.0)
[2019-10-12] MEDS ORDERED: MORPHINE SULFATE 4 MG/ML CPJ (NOT FOR IM USE) IV ONE ×2 (01:00→01:45)
[2019-10-12 04:00] VITALS: BP 144/93
[2019-10-12 04:10] VITALS: BP 129/95
[2019-10-12] MEDS ORDERED: CYAN50003 MT (04:24)
[2019-10-12] MEDS ORDERED: HYDR-3280 MT (04:24)
[2019-10-12] MEDS ORDERED: AMYL1CAP57 MT (04:24)
[2019-10-12] MEDS ORDERED: FERR236T3 MT (04:24)
[2019-10-12] MEDS ORDERED: MORPHINE SULFATE 2 MG/ML CPJ (NOT FOR IM USE) IV PRN (07:30)
[2019-10-12] MEDS ORDERED: DEXTROSE 50% WATER 50ML SYRINGE IV PRN (07:30)
[2019-10-12] MEDS: LIPASE/PROTEASE/AMYLASE 4,200/14,200/24,600 UNITS CAP DR PO SCH ×3 (07:50→17:58)
[2019-10-12] MEDS: INSULIN LISPRO 100 UNITS/ML SUBCUT SCH ×4 (09:16→21:34)
[2019-10-12] MEDS: SODIUM CHLORIDE 0.9% 1,000 ML IV SCH (11:09)
[2019-10-12] MEDS: MORPHINE SULFATE 2 MG/ML CPJ (NOT FOR IM USE) IV PRN ×4 (11:09→22:54)
[2019-10-12] MEDS: BLOOD SUGAR DIAGNOSTIC STRIP TEST SCH ×3 (12:20→21:33)
[2019-10-12 13:35] LABS: BASOPHILS % 0.1 % (0.0-2.0); EOSINOPHILS % 0.1 % (0.0-5.0); HEMATOCRIT. 41.8 % (42.0-52.0); HEMOGLOBIN. 13.9 g/dL (14.0-18.0); LYMPHOCYTES % 7.1 % (20.0-50.0); MEAN CORPUSCULAR HEMOGLOBIN 29.3 pg (28.0-32.0); MEAN CORPUSCULAR VOLUME 87.8 fL (80.0-94.0); MEAN PLATELET VOLUME 8.7 fl (7.4-10.4); MONOCYTES % 6.9 % (2.0-8.0); NEUTROPHILS % 85.8 % (40.0-76.0); PLATELET 222 x1000/uL (130-400); RED BLOOD CELL COUNT 4.76 mill/uL (4.7-6.1); RED CELL DISTRIBUTION WIDTH 20.4 % (11.6-14.6)
[2019-10-12 13:41] LABS: CHLORIDE 101 mEq/L (98-107)
[2019-10-12 13:49] LABS: LDL CHOLESTEROL 85 mg/dL (5-100)
[2019-10-12 13:50] LABS: HDL CHOLESTEROL 70 mg/dL (40-59)
[2019-10-12] MEDS: ONDANSETRON HCL 4MG/2ML INJ IV PRN ×2 (14:55→22:54)
[2019-10-12 18:34] LABS: *BARBITURATES SCREEN URINE NEGATIVE (NEGATIVE)
[2019-10-12 18:35] LABS: *AMPHETAMINES SCREEN URINE NEGATIVE (NEGATIVE); *BENZODIAZEPINES SCREEN URINE NEGATIVE (NEGATIVE); *COCAINE SCREEN URINE NEGATIVE (NEGATIVE); METHADONE URINE SCREEN NEGATIVE (NEGATIVE); OPIATES URINE SCREEN PRESUMTIVE POSITIVE (NEGATIVE)
[2019-10-12 18:36] LABS: CANNABINOID URINE SCREEN PRESUMTIVE POSITIVE (NEGATIVE); PHENCYCLIDINE URINE SCREEN NEGATIVE (NEGATIVE)
[2019-10-12 20:00] VITALS: BP 143/83
[2019-10-13] VITALS: BP 138/80
[2019-10-13] MEDS: MORPHINE SULFATE 2 MG/ML CPJ (NOT FOR IM USE) IV PRN ×6 (02:48→22:47)
[2019-10-13 04:00] VITALS: BP 128/62
[2019-10-13] MEDS: BLOOD SUGAR DIAGNOSTIC STRIP TEST SCH ×4 (06:24→21:40)
[2019-10-13 08:00] VITALS: BP 147/99
[2019-10-13] MEDS: LIPASE/PROTEASE/AMYLASE 4,200/14,200/24,600 UNITS CAP DR PO SCH ×3 (08:24→17:21)
[2019-10-13] MEDS: INSULIN LISPRO 100 UNITS/ML SUBCUT SCH ×4 (08:32→22:21)
[2019-10-13 12:00] VITALS: BP 139/93
[2019-10-13] MEDS: SODIUM CHLORIDE 0.9% 1,000 ML IV SCH ×2 (12:30→23:16)
[2019-10-13 16:00] VITALS: BP 131/83
[2019-10-13 17:13] LABS: BASOPHILS % 0.3 % (0.0-2.0); EOSINOPHILS % 0.3 % (0.0-5.0); HEMATOCRIT. 37.4 % (42.0-52.0); HEMOGLOBIN. 12.3 g/dL (14.0-18.0); LYMPHOCYTES % 12.6 % (20.0-50.0); MEAN CORPUSCULAR VOLUME 88.1 fL (80.0-94.0); MEAN PLATELET VOLUME 8.9 fl (7.4-10.4); MONOCYTES % 10.4 % (2.0-8.0); NEUTROPHILS % 76.4 % (40.0-76.0); PLATELET 194 x1000/uL (130-400); RED BLOOD CELL COUNT 4.25 mill/uL (4.7-6.1); RED CELL DISTRIBUTION WIDTH 20.8 % (11.6-14.6)
[2019-10-13 17:31] LABS: CHLORIDE 99 mEq/L (98-107)
[2019-10-13 20:00] VITALS: BP 152/94
[2019-10-13] MEDS ORDERED: POTASSIUM CHLORIDE 20MEQ TABLET SR PO NR (20:45)
[2019-10-14] VITALS: BP 134/89
[2019-10-14] MEDS: MORPHINE SULFATE 2 MG/ML CPJ (NOT FOR IM USE) IV PRN ×3 (02:41→09:02)
[2019-10-14 04:00] VITALS: BP 144/88
[2019-10-14] MEDS: BLOOD SUGAR DIAGNOSTIC STRIP TEST SCH (06:58)
[2019-10-14 08:00] VITALS: BP 140/92
[2019-10-14] MEDS: LIPASE/PROTEASE/AMYLASE 4,200/14,200/24,600 UNITS CAP DR PO SCH (08:42)
[2019-10-14] MEDS: SODIUM CHLORIDE 0.9% 1,000 ML IV SCH (09:02)
[2019-10-14] MEDS: INSULIN LISPRO 100 UNITS/ML SUBCUT SCH (09:07)
[2019-10-14 11:30] VITALS: BP 140/92
== END 2019-10-14 11:50 | disposition home or self-care (01) | DRG 282 ==
LOC: ER 23:43 → UNDOADMIN 10-12 01:55 → MICUSO 10-12 01:55 → 6EST 10-12 01:55
PROVIDERS: ADMIT Family Medicine; ATTEND Family Medicine
DX: K85.90 Acute pancreatitis without necrosis or infection, unspecified (principal); E11.9 Type 2 diabetes mellitus without complications; E86.0 Dehydration; K86.1 Other chronic pancreatitis; G89.29 Other chronic pain; Z79.4 Long term (current) use of insulin; Z82.49 Family history of ischemic heart disease and other diseases of the circulatory system; Z79.1 Long term (current) use of non-steroidal anti-inflammatories (NSAID); Z79.899 Other long term (current) drug therapy
CPT/HCPCS: 36415; 71045; 80053; 80061; 80305; 81003; 82962; 83036; 85025; 93005; 96374; 99285; J1815; J2270; J2405; J7030